=== PATIENT | female | born 1955 | race Caucasian/White ===

== ENCOUNTER → 2016-12-12 | Outpatient (CLI) | payer OTHER ==
--- NOTE | 2016-12-12 14:03 | KCIC ---
INDICATION: Right knee pain and swelling anteriorly intermittently. Meniscal injury in 2008. TECHNIQUE: 3 views of the right knee are submitted for review. No comparison is available. FINDINGS: There is mild spurring in the medial and patellofemoral compartments. There is minimal narrowing of both the medial and lateral compartments. There is no fracture or dislocation. There is no soft tissue swelling or joint effusion. IMPRESSION: Negative for fracture. Mild osteoarthritis. Electronically signed by: J Luis Orourke MD (12/12/2016 1:59 PM) [id number]
== END ==
LOC: KCIC 12:36
PROVIDERS: ATTEND Internal Medicine Rheumatology
DX: M17.11 Unilateral primary osteoarthritis, right knee (principal)
CPT/HCPCS: 73562